=== PATIENT | female | born 1995 | race Caucasian/White ===

== ENCOUNTER 2018-03-06 22:28 | Observation (INO) | payer BC ==
[2018-03-06] MEDS ORDERED: NS 1,000 ML IV ONE ×3 (22:38→23:39)
[2018-03-06] MEDS ORDERED: PROMETHAZINE HCL 25 MG/ML INJ IVP ONE (22:38)
[2018-03-06] MEDS ORDERED: KETOROLAC 30 MG/1 ML SDV IVP ONE (22:38)
[2018-03-06] MEDS ORDERED: OXYCODONE/APAP 5/325 TAB PO ONE (22:39)
--- NOTE | 2018-03-06 22:40 | EDPHY ---
H & P Stated Complaint: fever and generalized body aches Source: Patient Exam Limitations: No limitations - Personal History LMP (Females 10-55): 8-14 Days Ago Current Tetanus/Diphtheria Vaccine: Yes Current Tetanus Diphtheria and Acellular Pertussis (TDAP): Yes Tetanus Vaccine Date: < 10 years - Medical/Surgical History Hx Asthma: Yes Hx Chronic Respiratory Disease: No Hx Diabetes: No Hx Cardiac Disease: No Hx Renal Disease: No Hx Cirrhosis: No Hx Alcoholism: No Hx HIV/AIDS: No Hx Splenectomy or Spleen Trauma: No Other PMH: anxiety, L ear drum reconstruction,migraines, asthma, gum surgery - Social History Smoking Status: Never smoked Time Seen by Provider: 03/06/18 22:39 HPI/ROS: HPI: This is a 22-year-old female who presents with Chief Complaint: Fever and generalized body aches Location: body Quality: Fever Duration: 5-8 hours Signs and Symptoms: + subjective fever, + chills, + nausea, + vomiting, no hematemesis, no blood in stool, no abdominal bloating, no diarrhea, no back pain , no urinary symptoms, no vaginal discharge/bleeding, no indigestion, no chest pain, no shortness of breath Timing: Acute, constant Severity: Moderate Context: Patient has a past medical history of anxiety, asthma, attention deficit hyperactivity disorder, 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 Patient reports that she felt fine yesterday. Denies any abdominal pain/ diarrhea/back pain/urinary symptoms/neck stiffness. Patient reports that she does have a mild sore throat but she believes that is related to vomiting. Denies any other upper respiratory symptoms. Patient went to [facility] today. Negative influenza/strep test and chest x-ray performed at that time. Patient was given Zofran but reports that she took 2 tablets and is not helping her nausea and vomiting. Reports for the last 4 5 time she has not actually vomited but was dry heaving. Patient is trying to sip on liquids but has not eaten anything today. LMP 1-2 weeks ago. Modifying Factors: See above Comment: ROS: see HPI Constitutional: + fever, + chills, no weight loss Eyes: No blurred vision Respiratory: No shortness of breath, + cough Cardiovascular: No chest pain, no palpitations Gastrointestinal: No nausea, no vomiting, no diarrhea, no hematemesis, no blood in stool Genitourinary: No dysuria, no blood in urine Extremities: No myalgias, no edema Neurologic: No weakness, no numbness Skin: No rashes, no petechiae Hematologic: No bruising, no bleeding MEDICAL/SURGICAL/SOCIAL HISTORY: Medical history: Attention deficit hyperactivity disorder takes Adderall, anxiety, migraines, asthma Surgical history: gum surgery, L ear drum reconstruction Social history: Student at [employer]. Family history noncontributory. CONSTITUTIONAL: Extremely dramatic ill but nontoxic-appearing young adult white female, crying as her boyfriend ties her gown for her, awake and alert, no obvious distress HEENT: Atraumatic and normocephalic, PERRL, EOMI. Nares patent; no rhinorrhea; no nasal mucosal edema. Tympanic membranes clear. Oropharynx clear, tonsils 1+ -no erythema; no exudate; uvula midline and moist pink mucosa. Airway patent. Spotty anterior cervical lymphadenopathy. No meningismus. Cardiovascular: Normal S1/S2, mild tachycardia, regular rhythm, without murmur rub or gallop. PULMONARY/CHEST: Symmetrical and nontender. Clear to auscultation bilaterally. Good air movement. No accessory muscle usage. ABDOMEN: Soft, nondistended, nontender, no rebound, no guarding, no peritoneal signs, no masses or organomegaly. No CVAT. EXTREMITIES: 2/2 pulses, strength 5/5, no deformities, no clubbing, no cyanosis or edema. NEUROLOGICAL: no focal neuro deficits. GCS 15. SKIN: Warm and dry, no erythema. no rash. Good capillary refill. (Percival,Terra) Constitutional: Initial Vital Signs Temperature (C) 37.7 C 03/06/18 22:29 Heart Rate 125 H 03/06/18 22:29 Respiratory Rate 16 18 22:29 Blood Pressure 115/74 18 22:29 O2 Sat (%) 97 03/06/18 22:29 O2 Delivery Mode Room Air Allergies/Adverse Reactions: john Allergy (Verified 10/18/16 16:13) Home Medications: Medication Instructions Recorded EPINEPHrine KIT [Epipen Kit] 0.3 mg IM ONCE #2 inj 05/10/16 Adderall 10 MG (*) 03/06/18 Medical Decision Making - Diagnostics Imaging Results: Imaging Impressions Chest X-Ray 03/07/18 00:14 Impression: 1. Prominence of perihilar interstitial markings and peribronchial cuffing. Findings are nonspecific but can be seen with bronchitis, reactive airway disease, or viral process. 2. Possible early infiltrate/pneumonia left base. ED Course/Re-evaluation: Labs, IV fluids, IV and oral medications ordered Abdomen soft and nontender; doubt surgical abdomen. Influenza and strep negative at [facility] several hours ago. Modified Centor score low for strep. No signs of strep pharyngitis/tonsillar abscess/meningitis/otitis media/ sinusitis 2245: Patient given 2 L normal saline, IV promethazine, p.o. Decadron, IV Toradol 2255: notified by nurse; low-grade fever noted; 1000 mg of Tylenol ordered. 2340: Reassessed patient; reports continued anterior and posterior chest discomfort with dry coughing. Patient politely declined Percocet as she reports that she aspirated in the past and had to be hospitalized. Patient given albuterol nebulizer and p.o. Prednisone 60 mg for bronchitis 0015: Reassessed patient. Just received albuterol nebulizer. Heart rate 130s. Ordered 2 L normal saline for total 4 L. Lactic acid, UA and chest x-ray ordered for fever work up. at this point, add influenza swab. 0038: CXR my read via PACS shows: early infiltrate/pneumonia left base. IV Rocephin and Azithromycin ordered. Urinalysis shows no signs of infection. no signs of lactic acidosis. 0042: ED decision to consult hospitalist for persistent tachycardia 120 beats per minute despite 4 L of fluid and community-acquired pneumonia. Spoke with Dr. Chaney who kindly agrees to admit patient and provide further care. This patient was seen under the supervision of my secondary supervising physician. I evaluated care for this patient independently. Discussed this patient with Dr. Newell who examined patient. (Jazmin Conde) 0124: Patient is influenza positive. Time of EKG 0035: Sinus tachycardia rate of 125, no ST elevation no ST depression no significant T-wave abnormalities. (Alexsander Newell) Differential Diagnosis: Differential diagnosis includes but is not limited to viral pharyngitis, viral syndrome, gastroenteritis, meningitis. (Jazmin Conde) - Data Points Laboratory Results: Laboratory Results 03/06/18 22:45 03/06/18 22:45 03/07/18 03/07/18 03/07/18 00:25 00:25 00:18 WBC RBC Hgb Hct MCV MCH MCHC RDW Plt Count MPV Neut % (Auto) Lymph % (Auto) [place] % (Auto) Eos % (Auto) Baso % (Auto) Nucleat RBC Rel Count Absolute Neuts (auto) Absolute Lymphs (auto) Absolute Monos (auto) Absolute Eos (auto) Absolute Basos (auto) Absolute Nucleated RBC Immature Gran % Immature Gran # VBG Lactic Acid 0.7 mmol/L mmol/L (0.7-2.1) Sodium Potassium Chloride Carbon Dioxide Anion Gap BUN Creatinine Estimated GFR Glucose Calcium Total Bilirubin AST ALT Alkaline Phosphatase Troponin I NT-Pro-B Natriuret Pep Total Protein Albumin Beta HCG, Qual Urine Color PALE YELLOW Urine Appearance CLEAR Urine pH 6.0 (5.0-7.5) Ur Specific [place] 1.008 (1.002-1.030) Urine Protein NEGATIVE (NEGATIVE) Urine Ketones TRACE H (NEGATIVE) Urine Blood NEGATIVE (NEGATIVE) Urine Nitrate NEGATIVE (NEGATIVE) Urine Bilirubin NEGATIVE (NEGATIVE) Urine Urobilinogen NEGATIVE EU EU (0.2-1.0) Ur Leukocyte Esterase NEGATIVE (NEGATIVE) Urine Glucose NEGATIVE (NEGATIVE) Nasal Influenza A PCR FLU A DETECTED H (NEGATIVE) Nasal Influenza B PCR NEGATIVE FOR FLU B (NEGATIVE) 03/06/18 03/06/18 03/06/18 22:45 22:45 22:45 WBC RBC Hgb Hct MCV MCH MCHC RDW Plt Count MPV Neut % (Auto) Lymph % (Auto) [place] % (Auto) Eos % (Auto) Baso % (Auto) Nucleat RBC Rel Count Absolute Neuts (auto) Absolute Lymphs (auto) Absolute Monos (auto) Absolute Eos (auto) Absolute Basos (auto) Absolute Nucleated RBC Immature Gran % Immature Gran # VBG Lactic Acid Sodium 140 mEq/L mEq/L (135-145) Potassium 4.1 mEq/L mEq/L (3.5-5.2) Chloride 105 mEq/L mEq/L (97-110) Carbon Dioxide 25 mEq/l mEq/l (22-31) Anion Gap 10 mEq/L mEq/L (8-16) BUN 13 mg/dL mg/dL (7-23) Creatinine 0.8 mg/dL mg/dL (0.6-1.0) Estimated GFR > 60 Glucose 86 mg/dL mg/dL (70-100) Calcium 8.8 mg/dL mg/dL (8.5-10.4) Total Bilirubin 0.7 mg/dL mg/dL (0.1-1.4) AST 17 IU/L IU/L (14-46) ALT 27 IU/L IU/L (9-52) Alkaline Phosphatase 43 IU/L IU/L (38-126) Troponin I Pending NT-Pro-B Natriuret Pep Pending Total Protein 7.2 g/dL g/dL (6.3-8.2) Albumin 4.1 g/dL g/dL (3.5-5.0) Beta HCG, Qual NEGATIVE Urine Color Urine Appearance Urine pH Ur Specific [place] Urine Protein Urine Ketones Urine Blood Urine Nitrate Urine Bilirubin Urine Urobilinogen Ur Leukocyte Esterase Urine Glucose Nasal Influenza A PCR Nasal Influenza B PCR 03/06/18 22:45 WBC 7.20 10^3/uL 10^3/uL (3.80-9.50) RBC 4.35 10^6/uL 10^6/uL (4.18-5.33) Hgb 12.7 g/dL g/dL (12.6-16.3) Hct 38.6 % % (38.0-47.0) MCV 88.7 fL fL (81.5-99.8) MCH 29.2 pg pg (27.9-34.1) MCHC 32.9 g/dL g/dL (32.4-36.7) RDW 11.8 % % (11.5-15.2) Plt Count 234 10^3/uL 10^3/uL (150-400) MPV 9.1 fL fL (8.7-11.7) Neut % (Auto) 84.0 % H % (39.3-74.2) Lymph % (Auto) 5.8 % L % (15.0-45.0) [place] % (Auto) 8.5 % % (4.5-13.0) Eos % (Auto) 1.0 % % (0.6-7.6) Baso % (Auto) 0.4 % % (0.3-1.7) Nucleat RBC Rel Count 0.0 % % (0.0-0.2) Absolute Neuts (auto) 6.05 10^3/uL 10^3/uL (1.70-6.50) Absolute Lymphs (auto) 0.42 10^3/uL L 10^3/uL (1.00-3.00) Absolute Monos (auto) 0.61 10^3/uL 10^3/uL (0.30-0.80) Absolute Eos (auto) 0.07 10^3/uL 10^3/uL (0.03-0.40) Absolute Basos (auto) 0.03 10^3/uL 10^3/uL (0.02-0.10) Absolute Nucleated RBC 0.00 10^3/uL 10^3/uL (0-0.01) Immature Gran % 0.3 % % (0.0-1.1) Immature Gran # 0.02 10^3/uL 10^3/uL (0.00-0.10) VBG Lactic Acid Sodium Potassium Chloride Carbon Dioxide Anion Gap BUN Creatinine Estimated GFR Glucose Calcium Total Bilirubin AST ALT Alkaline Phosphatase Troponin I NT-Pro-B Natriuret Pep Total Protein Albumin Beta HCG, Qual Urine Color Urine Appearance Urine pH Ur Specific [place] Urine Protein Urine Ketones Urine Blood Urine Nitrate Urine Bilirubin Urine Urobilinogen Ur Leukocyte Esterase Urine Glucose Nasal Influenza A PCR Nasal Influenza B PCR Medications Given: Azithromycin 500 mg/ Sodium (Chloride) 255 mls @ 255 mls/hr IV EDNOW ONE PRN Reason: Protocol Stop: 03/07/18 02:29 Last Admin: 03/07/18 01:18 Dose: 255 mls Discontinued Medications Acetaminophen (Tylenol) 1,000 mg PO EDNOW ONE Stop: 03/06/18 23:09 Last Admin: 03/06/18 23:10 Dose: 1,000 mg Albuterol (Proventil Neb) 3 ml IH EDNOW ONE Stop: 03/06/18 23:42 Last Admin: 03/06/18 23:45 Dose: 3 ml Sodium Chloride (Ns) 1,000 mls @ 0 mls/hr IV EDNOW ONE; Wide Open PRN Reason: Protocol Stop: 03/06/18 22:39 Last Admin: 03/06/18 22:47 Dose: 1,000 mls Sodium Chloride (Ns) 1,000 mls @ 0 mls/hr IV EDNOW ONE; Wide Open PRN Reason: Protocol Stop: 03/06/18 22:39 Last Admin: 03/06/18 22:59 Dose: 1,000 mls Sodium Chloride (Ns) 1,000 mls @ 0 mls/hr IV ONCE ONE PRN Reason: Wide Open Stop: 03/06/18 23:40 Last Admin: 03/06/18 23:40 Dose: 1,000 mls Sodium Chloride (Ns) 1,000 mls @ 0 mls/hr IV EDNOW ONE; Wide Open PRN Reason: Protocol Stop: 03/07/18 00:15 Last Admin: 03/07/18 00:27 Dose: 1,000 mls Ketorolac Tromethamine (Toradol) 30 mg IVP EDNOW ONE Stop: 03/06/18 22:39 Last Admin: 03/06/18 22:57 Dose: 30 mg Oxycodone/Acetaminophen (Percocet 5/325) 1 tab PO EDNOW ONE Stop: 03/06/18 22:40 Last Admin: 03/06/18 23:00 Dose: Not Given Prednisone (Prednisone) 60 mg PO EDNOW ONE Stop: 03/06/18 23:42 Last Admin: 03/06/18 23:45 Dose: 60 mg Promethazine HCl (Phenergan) 12.5 mg IVP ONCE ONE Stop: 03/06/18 22:39 Last Admin: 03/06/18 22:57 Dose: 12.5 mg Departure - Departure Disposition: [facility] Inpatient Acute Clinical Impression: Sinus tachycardia seen on night monitor Community acquired pneumonia Qualifiers: Laterality: left Lung location: lower lobe of lung Qualified Code(s): J18.1 - Lobar pneumonia, unspecified organism Condition: Fair
[2018-03-06 22:56] LABS: PLATELET COUNT 234 10^3/uL (150-400)
[2018-03-06] MEDS ORDERED: ACETAMINOPHEN 500 MG TAB PO ONE (23:08)
[2018-03-06] MEDS ORDERED: predniSONE 20 MG TAB PO ONE (23:41)
[2018-03-06] MEDS ORDERED: ALBUTEROL 3 ML DEYVIAL IH ONE (23:41)
[2018-03-07] MEDS ORDERED: NS 1,000 ML IV ONE (00:14)
[2018-03-07] MEDS ORDERED: AZITHROMYCIN IV 500 MG in D5W 250 ML IV ONE (00:36)
[2018-03-07] MEDS ORDERED: cefTRIAXone 2 GM in STERILE WATER INJ 20 ML IV ONE (00:36)
--- NOTE | 2018-03-07 00:37 | CPEKG ---
Heart Rate: 125 RR Interval: 480 P-R Interval: 152 QRSD Interval: 98 QT Interval: 316 QTC Interval: 456 P Reliance: 43 QRS Reliance: 41 T Wave Reliance: -20 EKG Severity - BORDERLINE ECG - EKG Impression: SINUS TACHYCARDIA EKG Impression: BORDERLINE T ABNORMALITIES, DIFFUSE LEADS Electronically Signed By: Alexsander Newell 07-Mar-2018 06:52:54
[2018-03-07] MEDS ORDERED: ONDANSETRON 4 MG/2 ML VIAL IVP PRN (01:05)
[2018-03-07] MEDS ORDERED: diphenhydrAMINE 25 MG CAP PO PRN (01:05)
[2018-03-07] MEDS ORDERED: ACETAMINOPHEN 325 MG TAB PO PRN (01:05)
[2018-03-07] MEDS ORDERED: ALBUTEROL 3 ML DEYVIAL IH PRN (01:08)
[2018-03-07] MEDS ORDERED: NS 1,000 ML IV SCH (01:15)
[2018-03-07] MEDS ORDERED: PROMETHAZINE HCL 25 MG/ML INJ IVP ONE ×2 (01:27→01:29)
[2018-03-07] MEDS ORDERED: AZITHROMYCIN IV 500 MG in NS 250 ML IV ONE (01:30)
[2018-03-07] MEDS ORDERED: PROMETHAZINE HCL 25 MG/ML INJ ONE (01:31)
[2018-03-07] MEDS ORDERED: OSELTAMIVIR PHOSPHATE 75 MG CAP ONE (01:49)
[2018-03-07] MEDS: OSELTAMIVIR PHOSPHATE 75 MG CAP PO SCH ×2 (01:50→08:05)
--- NOTE | 2018-03-07 03:14 | PDGENHP ---
History and Physical - Chief Complaint Fever and muscle aching - History of Present Illness Source - patient seen on medical floor and is a little bit somnolent. she does wake to answer a few questions but falls asleep intermittently during interview. Case discussed with ED provider, RN and EMR reviewed. HPI - Pleasant 22 yo F with pmhx significant for asthma, anxiety/ADHD who presents to the ED today with complaints of several hours of intermittent fever and diffuse and worsening myalgias. Patient denies any known sick contacts. She has been having subjective fevers/chills and several episodes of nausea/vomiting without hematemesis. Patient reports slightly sore throat but no cough, dyspnea, rhinorrhea, or nasal congestion. Patient also denies any abdominal or urinary symptoms. History Information - Allergies/Home Medication List Allergies/Adverse Reactions: john Allergy (Verified 10/18/16 16:13) Home Medications: Adderall 10 MG (*) 03/06/18 [Last Taken Unknown] I have personally reviewed and updated: family history, medical history, social history, surgical history - Past Medical History Additional medical history: Asthma, anxiety, attention deficit hyperactivity disorder, hospitalization 2016 for concussion and pneumonia with adenovirus with a diagnosis of rebound headaches related to narcotics per chart review, migraine headaches. - Surgical History Additional surgical history: gum surgery, left ear drum repair - Family History Additional family history: Patient denies asthma, CAD. - Social History Smoking Status: Never smoked Alcohol Use: Occasionally Drug Use: None Additional social history: Patient is a student at [employer]. Cor- full Review of Systems Review of Systems: ROS: 10pt was reviewed & negative except for what was stated in HPI & below Constitutional: Reports: chills, fever. Denies: recent illness, weakness EENMT: Reports: sore throat. Denies: blurred vision, nose congestion Cardiac: Reports: no symptoms Respiratory: Reports: no symptoms. Denies: cough, shortness of breath, wheezing Gastrointestinal: Reports: vomitting, nausea. Denies: abdominal pain, diarrhea Genitourinary: Denies: dysuria, hematuria Muscolosketal: Reports: muscle pain (diffuse myalgias). Denies: back pain Skin: Reports: no symptoms Neurological: Reports: no symptoms. Denies: headache Hematologic/Lymphatic: Reports: no symptoms Physical Exam Physical Exam: Selected Entries 03/06/18 22:29 Blood Pressure Automatic Method Heart Rate 125 H Respiratory 16 Rate O2 Sat (%) 97 Temperature (C) 37.7 C Blood Pressure 115/74 Mean Arterial 87 Pressure (MAP) O2 Delivery Room Air Mode Temperature Oral Source Temp Pulse Resp BP Pulse Ox 37.3 C 121 H 18 92/55 L 94 03/07/18 02:15 03/07/18 02:15 03/07/18 02:15 03/07/18 02:15 03/07/18 02:15 Constitutional: no apparent distress, other (NAD. Patient appears acutely ill but nontoxic. resting quietly in bed. somnolent. ) Eyes: PERRL, anicteric sclera, EOMI, No scleral injection Ears, Nose, Mouth, Throat: no oral mucosal ulcers, dry mucous membranes, other Cardiovascular: no murmur, rub, or gallop, tachycardia (reg rhythm), No edema Peripheral Pulses: 2+: dorsalis-pedis (R), dorsalis-pedis (L) Respiratory: no respiratory distress, no rales or rhonchi, clear to auscultation , reduced air movement (bibasilar), No expiratory wheeze, No inspiratory crackles Gastrointestinal: normoactive bowel sounds, soft, non-tender abdomen, no palpable masses, No tenderness, No distension Genitourinary: no bladder tenderness, No galvez in urethra Skin: warm, other (pallor) Musculoskeletal: full muscle strength, other (moves all extremities. ), No generalized weakness Neurologic: AAOx3, other (grossly nonfocal. ), No facial droop Psychiatric: thought process linear, flat affect, No anxious Lab Data & Imaging Review 03/07/18 04:08 03/07/18 04:08 WBC 7.20 10^3/uL (3.80-9.50) 03/06/18 22:45 RBC 4.35 10^6/uL (4.18-5.33) 03/06/18 22:45 Hgb 12.7 g/dL (12.6-16.3) 03/06/18 22:45 Hct 38.6 % (38.0-47.0) 03/06/18 22:45 MCV 88.7 fL (81.5-99.8) 03/06/18 22:45 MCH 29.2 pg (27.9-34.1) 03/06/18 22:45 MCHC 32.9 g/dL (32.4-36.7) 03/06/18 22:45 RDW 11.8 % (11.5-15.2) 03/06/18 22:45 Plt Count 234 10^3/uL (150-400) 03/06/18 22:45 MPV 9.1 fL (8.7-11.7) 03/06/18 22:45 Neut % (Auto) 84.0 % (39.3-74.2) H 03/06/18 22:45 Lymph % (Auto) 5.8 % (15.0-45.0) L 03/06/18 22:45 [place] % (Auto) 8.5 % (4.5-13.0) 03/06/18 22:45 Eos % (Auto) 1.0 % (0.6-7.6) 03/06/18 22:45 Baso % (Auto) 0.4 % (0.3-1.7) 03/06/18 22:45 Nucleat RBC Rel Count 0.0 % (0.0-0.2) 03/06/18 22:45 Absolute Neuts (auto) 6.05 10^3/uL (1.70-6.50) 03/06/18 22:45 Absolute Lymphs (auto) 0.42 10^3/uL (1.00-3.00) L 03/06/18 22:45 Absolute Monos (auto) 0.61 10^3/uL (0.30-0.80) 03/06/18 22:45 Absolute Eos (auto) 0.07 10^3/uL (0.03-0.40) 03/06/18 22:45 Absolute Basos (auto) 0.03 10^3/uL (0.02-0.10) 03/06/18 22:45 Absolute Nucleated RBC 0.00 10^3/uL (0-0.01) 03/06/18 22:45 Immature Gran % 0.3 % (0.0-1.1) 03/06/18 22:45 Immature Gran # 0.02 10^3/uL (0.00-0.10) 03/06/18 22:45 VBG Lactic Acid 0.7 mmol/L (0.7-2.1) 03/07/18 00:18 Sodium 140 mEq/L (135-145) 03/06/18 22:45 Potassium 4.1 mEq/L (3.5-5.2) 03/06/18 22:45 Chloride 105 mEq/L (97-110) 03/06/18 22:45 Carbon Dioxide 25 mEq/l (22-31) 03/06/18 22:45 Anion Gap 10 mEq/L (8-16) 03/06/18 22:45 BUN 13 mg/dL (7-23) 03/06/18 22:45 Creatinine 0.8 mg/dL (0.6-1.0) 03/06/18 22:45 Estimated GFR > 60 03/06/18 22:45 Glucose 86 mg/dL (70-100) 03/06/18 22:45 Calcium 8.8 mg/dL (8.5-10.4) 03/06/18 22:45 Total Bilirubin 0.7 mg/dL (0.1-1.4) 03/06/18 22:45 AST 17 IU/L (14-46) 03/06/18 22:45 ALT 27 IU/L (9-52) 03/06/18 22:45 Alkaline Phosphatase 43 IU/L (38-126) 03/06/18 22:45 Troponin I < 0.012 ng/mL (0.000-0.034) 03/06/18 22:45 NT-Pro-B Natriuret Pep 68 pg/mL (0-125) 03/06/18 22:45 Total Protein 7.2 g/dL (6.3-8.2) 03/06/18 22:45 Albumin 4.1 g/dL (3.5-5.0) 03/06/18 22:45 Beta HCG, Qual NEGATIVE 03/06/18 22:45 Urine Color PALE YELLOW 03/07/18 00:25 Urine Appearance CLEAR 03/07/18 00:25 Urine pH 6.0 (5.0-7.5) 03/07/18 00:25 Ur Specific [place] 1.008 (1.002-1.030) 03/07/18 00:25 Urine Protein NEGATIVE (NEGATIVE) 03/07/18 00:25 Urine Ketones TRACE (NEGATIVE) H 03/07/18 00:25 Urine Blood NEGATIVE (NEGATIVE) 03/07/18 00:25 Urine Nitrate NEGATIVE (NEGATIVE) 03/07/18 00:25 Urine Bilirubin NEGATIVE (NEGATIVE) 03/07/18 00:25 Urine Urobilinogen NEGATIVE EU (0.2-1.0) 03/07/18 00:25 Ur Leukocyte Esterase NEGATIVE (NEGATIVE) 03/07/18 00:25 Urine Glucose NEGATIVE (NEGATIVE) 03/07/18 00:25 Nasal Influenza A PCR FLU A DETECTED (NEGATIVE) H 03/07/18 00:25 Nasal Influenza B PCR NEGATIVE FOR FLU B (NEGATIVE) 03/07/18 00:25 Imaging Review: PA and Lateral Chest X-Ray 2345 hours History: Cough and fever. Evaluate for pneumonia. Findings: Comparison to previous study of 02/09/2016. Heart size and pulmonary vasculature are normal. There is peribronchial cuffing seen in the perihilar region and prominence of perihilar interstitial markings. Increased parenchymal markings are also suspected at the left base. Osseous structures are intact. Impression: 1. Prominence of perihilar interstitial markings and peribronchial cuffing. Findings are nonspecific but can be seen with bronchitis, reactive airway disease, or viral process. 2. Possible early infiltrate/pneumonia left base. Visualized and Interpreted Chest x-ray results: Yes Chest X-Ray results: infiltrate Visualized and Interpreted EKG results: Yes EKG additional interpertation: sinus tachycardia 120s in QTc 456. no acute ST changes. nonspecific t wave flattening multiple leads. Assessment & Plan Assessment: 22 yo F with hx asthma, anxiety, ADHD presents with acute onset fevers and myalgias Influenza A - tamiflu. supportive care. Left lower lobe pneumonia - azithromycin and rocephin started in ED. SIRS - tachycardia down trending but still elevated despite multiple liters of IVF. lactic acid WNL. myalgias - tylenol and NSAIDS prn. will avoid narcotics anemia - on AM labs. no evidence of active bleeding. possibly dilutional effect and component of acute illness. platelet count acceptable. chronic medical issues asthma without exacerbation - nebs, steroids, titrate o2 to maintain sats > 90% anxiety - currently controlled. supportive care. ADHD FEN - IVF. diet as tolerated. electrolyte monitoring no replacement required at this time. PPX - SCDs. ambulate. low risk for DVT. COR - FULL Dispo - admit observation. when HR stabilized and patient tolerating PO anticipate discharge home with tamiflu, antibiotics.
[2018-03-07 04:39] LABS: PLATELET COUNT 194 10^3/uL (150-400)
[2018-03-07] MEDS ORDERED: KETOROLAC 15 MG/1 ML SDV IVP PRN (05:21)
[2018-03-07] MEDS ORDERED: predniSONE 20 MG TAB PO SCH (09:00)
[2018-03-07 15:23] VITALS: BP 104/63
--- NOTE | 2018-03-07 16:27 | GDS ---
[f rep st] DISCHARGE SUMMARY DISCHARGE DIAGNOSES: 1. Influenza. 2. Possible secondary bacterial pneumonia. 3. Bronchospasm. 4. Attention deficit hyperactivity disorder. 5. History of concussion. Please see admission history and physical by Dr. Nae Chaney. The patient presented with fever, chi lls, and myalgias. She was diagnosed with influenza and possible left lower lobe infiltrate on chest x-ray. She had already been on azithromycin. She was given steroids, albuterol, ceftriaxone, azith romycin, and Tamiflu. On 1st hospital day, the patient was feeling well and actually quite anxious f or discharge. She is discharged home today to complete a 5-day burst of prednisone, 5 days of Tamifl u, and I allowed her to return to azithromycin alone for treatment of her possible secondary bacteria l pneumonia. The patient was on room air. She had a negative test while here. /[id number]/MODL
[2018-03-08] MEDS ORDERED: AZITHROMYCIN IV 500 MG in NS 250 ML IV SCH (09:00)
== END 2018-03-07 16:40 | disposition home or self-care (01) ==
LOC: INTOOBSV 03-07 00:50 → F1N 03-07 02:07
PROVIDERS: ADMIT Family Medicine; ATTEND Internal Medicine
DX: J11.1 Influenza due to unidentified influenza virus with other respiratory manifestations (principal); J98.01 Acute bronchospasm; R91.8 Other nonspecific abnormal finding of lung field; F90.1 Attention-deficit hyperactivity disorder, predominantly hyperactive type; Z87.820 Personal history of traumatic brain injury
CPT/HCPCS: 71046; 93005; 96361; 96374; 96375; 99285; G0378; J0456; J0696; J1885; J2405; J2550; J7512; J7613

== ENCOUNTER 2018-12-30 09:28 | Emergency (ER) | payer BC ==
[2018-12-30 09:34] VITALS: BP 141/86
--- NOTE | 2018-12-30 09:59 | EDPHY ---
H & P Stated Complaint: back, R neck and shoulder pain Time Seen by Provider: 12/30/18 09:56 HPI/ROS: HPI: This is a 23-year-old female who presents with Chief Complaint: back, R neck and shoulder pain Location: Mid back Quality: Pain Duration: Since yesterday Signs and Symptoms: No bleeding, + radiation, no numbness, no weakness, no tingling, no incontinence, + decreased range of motion, no swelling, + pain, no fever Timing: Acute Severity: Moderate Context: Patient was skiing yesterday at [place], wearing a helmet, when she skied into a ravine and her skis angled at 90 and she suddenly stopped. She reports that her body at the waist and back quickly flex forward and backwards. She reports that she felt discomfort in the middle of her back with radiation down into her right arm. It took a few minutes collect herself as she was able to ski down the mountain. She woke up this morning with continued pain in the midback area with radiation into her right arm. Denies LOC/head injury/neck pain/dizziness/nausea/vomiting/amnesia. LMP December 07. Denies any change in bowel or bladder habits. Eating and drinking normally. Has no primary care provider. Modifying Factors: She has not taking any [id number] pain medications Comment: ROS: A comprehensive 10 system review of systems is otherwise negative aside from elements mentioned in the history of present illness. MEDICAL/SURGICAL/SOCIAL HISTORY: Medical History: anxiety, L ear drum reconstruction,migraines, asthma Surgical history: Oral surgery Social history: Graduated in October from [employer]. Nonsmoker. CONSTITUTIONAL: Well-developed, well-nourished, young adult white female, awake and alert, no obvious distress HEENT: Atraumatic and normocephalic. NECK: supple, no midline tenderness, flexion 45 degrees, extension 45 degrees, right and left lateral flexion 45 degrees. Cardiovascular: Normal S1/S2, regular rate, regular rhythm, without murmur rub or gallop. PULMONARY/CHEST: Symmetrical and nontender. no crepitus. Clear to auscultation bilaterally. Good air movement. No accessory muscle usage. ABDOMEN: Soft, nondistended, nontender, no ecchymosis. PELVIC: no pain with rocking; bilateral hips flexion 125 degrees, extension 30 degrees, with no pain internal rotation and no pain external rotation. BACK: T2, T3 midline tenderness, moderate thoracic paraspinous spasm and reproducible tenderness to palpation in the paraspinous muscles, deep tendon reflexes 2/2, no pain with straight leg raise, No foot drop. Achilles reflexes are equal bilaterally. Able to walk on heels and toes without difficulty. EXTREMITIES: 2/2 pulses, strength 5/5, DIP/PIP/MCP flexion/extension intact with good light touch sensation. no deformities, no clubbing, no cyanosis or edema. NEUROLOGICAL: no focal neuro deficits. GCS 15. Light touch sensation intact. SKIN: Warm and dry, no erythema. no rash. Good capillary refill. Source: Patient Exam Limitations: No limitations - Personal History Current Tetanus/Diphtheria Vaccine: Yes Current Tetanus Diphtheria and Acellular Pertussis (TDAP): Yes Tetanus Vaccine Date: < 10 years - Medical/Surgical History Hx Asthma: Yes Hx Chronic Respiratory Disease: No Hx Diabetes: No Hx Cardiac Disease: No Hx Renal Disease: No Hx Cirrhosis: No Hx Alcoholism: No Hx HIV/AIDS: No Hx Splenectomy or Spleen Trauma: No Other PMH: anxiety, L ear drum reconstruction,migraines, asthma, gum surgery - Social History Smoking Status: Never smoked Constitutional: Initial Vital Signs Temperature (C) 36.7 C 12/30/18 09:32 Heart Rate 100 12/30/18 09:32 Respiratory Rate 16 12/30/18 09:32 Blood Pressure 141/86 H 12/30/18 09:32 O2 Sat (%) 99 12/30/18 09:32 O2 Delivery Mode Room Air Allergies/Adverse Reactions: jhon Allergy (Verified 12/30/18 09:31) FEBREEZE Allergy (Uncoded 12/30/18 09:31) Home Medications: Medication Instructions Recorded Diazepam [Valium 2 MG (*)] 2 - 4 mg PO Q6 PRN #12 tab 12/30/18 Medical Decision Making - Diagnostics Imaging Results: Imaging Impressions Thoracic Spine X-Ray 12/30/18 10:06 Impression: No evidence for acute fracture. Dextroscoliotic curvature thoracolumbar junction. Minimal anterior wedge compression deformity T7 and T8, unchanged. ED Course/Re-evaluation: Vital signs reviewed and show mildly elevated blood pressure. Patient has mild midline thoracic tenderness with moderate paraspinous muscle spasm in the thoracic area No neurological deficits to warrant emergent MRI in the emergency room Thoracic x-rays ordered per patient request Thoracic x-ray radiology read shows: No evidence for acute fracture. Dextroscoliotic curvature thoracolumbar junction. Minimal anterior wedge compression deformity T7 and T8, unchanged. This is an old deformity wedge compression fracture. No signs of neurovascular compromise/tenting of skin/compartment syndrome/ extremities and joints examined above and below area of concern and are neurovascularly intact/cauda equina syndrome. This patient was seen under the supervision of my secondary supervising physician. I evaluated care for this patient attending. Discussed this patient with Dr. Holcomb. Differential Diagnosis: Back pain including but not limited to muscular pain, herniated disc, spine fracture, intra-abdominal causes and urinary tract infection. Departure - Departure Disposition: Home, Routine, Self-Care Clinical Impression: Strain of muscle at thorax level, Dextroscoliosis, History of compression fracture of spine Condition: Good Instructions: Thoracic Back Strain (ED), Scoliosis in Children (DC) Additional Instructions: Rest as much as possible until you are feeling better. Do not perform any moderate exercise or lifting greater than 10 lb until all pain has resolved. Take Tylenol 650 mg every 4 hours and/or Ibuprofen 600 mg every 8 hours with food as needed for pain. Use Valium every 6-8 hours as needed for muscle spasm. Apply moist heat for 30 minutes at a time; 2-3 times per day for the next 1-2 days. Establish care with primary care provider. A referral has been provided. If symptoms persist greater than 7-10 days, follow-up with primary care provider for evaluation and to determine if conservative management versus MRI is indicated. Referrals: Preet Christine DO [Doctor of Osteopathy] - As per Instructions Stand Alone Forms: Work Excuse Prescriptions: Diazepam [Valium 2 MG (*)] 2 - 4 mg PO Q6 PRN #12 tab PRN Reason: Spasms
--- NOTE | 2018-12-30 10:22 | ASMTCAGE ---
CAGE Additional Comments Questions not asked as there is no indication this is an issue Date Signed: 12/30/2018 10:21 AM Electronically Signed By:Caitlin Arevalo RN
== END 2018-12-30 10:44 | disposition home or self-care (01) ==
DX: S23.3XXA Sprain of ligaments of thoracic spine, initial encounter (principal); M41.86 Other forms of scoliosis, lumbar region; M43.8X6 Other specified deforming dorsopathies, lumbar region; V00.322A Snow-skier colliding with stationary object, initial encounter; Y93.23 Activity, snow (alpine) (downhill) skiing, snowboarding, sledding, tobogganing and snow tubing; Y92.838 Other recreation area as the place of occurrence of the external cause